=== PATIENT | female | born 1955 | race African-American/Black ===

== ENCOUNTER 2017-01-04 13:29 | Emergency (ER) | payer OTHER ==
[~2017-01-04] VITALS: Ht 167.6 cm; Wt 46.7 kg
[~2017-01-04 13:29] MED LIST: ALEN70TA45 PO; ASPI81TA2 PO; CALC-1049 PO; DARU400T2 PO; DOLU50TA PO; FOLI20CA PO; GLYC1SUP RC; ILOP8TAB2 PO; LAMO100T PO; LOPE2CAP PO; LORA1TAB PO; OMEP40CA37 PO; PRAV40TA3 PO; RITO100T PO
[2017-01-04 13:35] VITALS: BP 131/84
[2017-01-04] MEDS ORDERED: HYDROCODONE/APAP 5/325MG 1 EACH TABLET ONE (13:42)
[2017-01-04 13:55] LABS: BASOPHILS # (AUTO) 0.1 /CMM (0.0-0.2); BASOPHILS % (AUTO) 1.1 % (0.0-2.0); EOSINOPHILS # (AUTO) 0.2 /CMM (0.0-0.7); HEMATOCRIT 36 % (33-45); HEMOGLOBIN 11.8 g/dL (11.5-14.8); LYMPHOCYTES # (AUTO) 2.2 /CMM (0.8-4.8); LYMPHOCYTES % (AUTO) 37.5 % (20.0-44.0); MEAN CORPUSCULAR HEMOGLOBIN 29 PG (26.0-33.0); MEAN CORPUSCULAR HGB CONC 33 g/dl (31.0-36.0); MEAN CORPUSCULAR VOLUME 88 fL (82-100); MONOCYTES # (AUTO) 0.5 /CMM (0.1-1.30); MONOCYTES % (AUTO) 8.9 % (2.0-12.0); NEUTROPHILS # (AUTO) 2.9 /CMM (1.8-8.9); NEUTROPHILS % (AUTO) 49.5 % (43.0-81.0); PLATELET COUNT (AUTO) 254 /CMM (150-450); RDW COEFFICIENT OF VARIATION 12.9 (11.5-15.0); RED BLOOD CELL COUNT(AUTO) 4.07 MIL/uL (4.0-5.2); WHITE BLOOD COUNT (AUTO) 5.9 K/uL (4.3-11.0)
[2017-01-04 13:56] LABS: APPEARANCE,URINE Slightly Cloudy (CLEAR); BILIRUBIN,URINE Negative (NEGATIVE); BLOOD, URINE Trace-lysed Ery/uL (NEGATIVE); COLOR,URINE Yellow (YELLOW); KETONES,URINE Negative (NEGATIVE); LEUKOCYTE ESTERASE ,URINE Small (NEGATIVE); NITRITE, URINE Negative (NEGATIVE); PROTEIN,URINE Negative (NEGATIVE); UGLUCOSE Negative (NEGATIVE); UROBILINOGEN,URINE 0.2 EU/dL (0.2)
[2017-01-04] MEDS ORDERED: HYDROCODONE/APAP 5/325MG 1 EACH TABLET PO ONE (14:00)
[2017-01-04 14:31] LABS: CALCIUM, SERUM 9.3 mg/dL (8.5-10.1); CARBON DIOXIDE 32 mmol/L (21-32); CHLORIDE 105 mmol/L (98-107); CREATININE 1.4 mg/dL (0.6-1.3); GLUCOSE 86 mg/dL (74-106); POTASSIUM 3.5 mmol/L (3.5-5.1); SODIUM SERUM 142 mmol/L (136-145); UREA NITROGEN, BLOOD 21 mg/dL (7-18)
[2017-01-04 14:47] LABS: ACETAMINOPHEN < 2 ug/ml (10-30); ALANINE AMINOTRANSFERASE 32 U/L (12-78); ALBUMIN 3.9 g/dL (3.4-5.0); ALCOHOL, BLOOD < 3 mg/dL (0-0); ALKALINE PHOSPHATASE 64 U/L (46-116); ASPARTATE AMINOTRANSFERASE 37 U/L (15-37); BILIRUBIN,DIRECT 0.1 mg/dL (0.0-0.2); BILIRUBIN,TOTAL 0.4 mg/dL (0.2-1.0); SALICYLATE 0.9 mg/dL (2.8-20.0); TOTAL PROTEIN, SERUM 7.4 g/dL (6.4-8.2)
[2017-01-04 14:49] LABS: BACTERIA,URINE Few /HPF (None Seen); RBC,URINE 0-2 /HPF (0-2); SQUAMOUS EPITHELIAL CELL,UR Few /HPF (None Seen)
== END 2017-01-04 16:35 | disposition home or self-care (01) ==
LOC: ER 13:36
DX: F25.9 Schizoaffective disorder, unspecified (principal); N28.9 Disorder of kidney and ureter, unspecified; I34.1 Nonrheumatic mitral (valve) prolapse; M54.5 Low back pain; F17.200 Nicotine dependence, unspecified, uncomplicated; Z79.82 Long term (current) use of aspirin; Z88.5 Allergy status to narcotic agent; Z90.710 Acquired absence of both cervix and uterus
CPT/HCPCS: 36415; 80048; 80076; 80305; 80329; 81001; 85025; 99284; A4606; G0480 ×2; Z7610; 81000-TC

== ENCOUNTER 2017-09-13 08:37 | Emergency (ER) | payer OTHER ==
[~2017-09-13] VITALS: Ht 165.1 cm; Wt 50.8 kg
[~2017-09-13 08:37] MED LIST changes: +ASPI-1169 PO; -ASPI81TA2 PO
--- NOTE | 2017-09-13 08:44 | NUR ---
AAOX3, BIBRA FROM HOME C/O HALLUCINATION, TOOK SPEED AROUND 2AM, UPON ASSESSMENT, PATIENT WAS COMPLAINING OF CHEST DISCOMFORT. RR IS EVEN AND UNLABORED WITH NAD NOTED. PLACED ON THE MONITOR. AWAITING MD FOR EVAL.
[2017-09-13 09:28] LABS: BASOPHILS % (AUTO) 0.7 % (0.0-2.0); EOSINOPHILS % (AUTO) 3.5 % (0.0-6.0); HEMATOCRIT 40 % (33-45); HEMOGLOBIN 12.8 g/dL (11.5-14.8); LYMPHOCYTES # (AUTO) 2.2 /CMM (0.8-4.8); LYMPHOCYTES % (AUTO) 37.5 % (20.0-44.0); MEAN CORPUSCULAR HEMOGLOBIN 29 PG (26.0-33.0); MEAN CORPUSCULAR HGB CONC 32 g/dl (31.0-36.0); MEAN CORPUSCULAR VOLUME 91 fL (82-100); MONOCYTES # (AUTO) 0.6 /CMM (0.1-1.30); NEUTROPHILS # (AUTO) 2.8 /CMM (1.8-8.9); NEUTROPHILS % (AUTO) 47.3 % (43.0-81.0); PLATELET COUNT (AUTO) 245 /CMM (150-450); RDW COEFFICIENT OF VARIATION 14.5 (11.5-15.0); RED BLOOD CELL COUNT(AUTO) 4.35 MIL/uL (4.0-5.2); WHITE BLOOD COUNT (AUTO) 5.9 K/uL (4.3-11.0)
[2017-09-13] MEDS ORDERED: IV NS 0.9% 1,000 ML BAG IV ONE (09:30)
[2017-09-13 09:35] LABS: CALCIUM, SERUM 9.4 mg/dL (8.5-10.1); CARBON DIOXIDE 37 mmol/L (21-32); CHLORIDE 106 mmol/L (98-107); GLUCOSE 93 mg/dL (74-106); POTASSIUM 4.5 mmol/L (3.5-5.1); SODIUM SERUM 141 mmol/L (136-145); UREA NITROGEN, BLOOD 10 mg/dL (7-18)
[2017-09-13 09:44] LABS: TROPONIN I < 0.017 ng/mL (0.00-0.056)
[2017-09-13 09:48] LABS: INR 0.9 (0.87-1.13)
[2017-09-13] MEDS ORDERED: IOHEXOL-350 100 ML VIAL IV ONE (11:15)
[2017-09-13] MEDS ORDERED: CT SWABBABLE VALVE TRANS SET 1 EA INFUS.SET MC ONE (11:15)
[2017-09-13] MEDS ORDERED: IV NS 0.9% 250 ML IV ONE (11:15)
[2017-09-13 14:47] VITALS: BP 147/89
--- NOTE | 2017-09-13 14:47 | NUR ---
Patient discharged to home in stable condition. Written and verbal after care instructions given. Patient verbalizes understanding of instruction.IV removed. Catheter intact and site benign. Pressure and 4x4 applied to site. No bleeding noted.
== END 2017-09-13 14:48 | disposition home or self-care (01) ==
LOC: ER 08:38
DX: R07.89 Other chest pain (principal); F19.10 Other psychoactive substance abuse, uncomplicated; F15.90 Other stimulant use, unspecified, uncomplicated; E11.9 Type 2 diabetes mellitus without complications; F17.200 Nicotine dependence, unspecified, uncomplicated; Z88.5 Allergy status to narcotic agent; Z98.51 Tubal ligation status; Z98.890 Other specified postprocedural states; Z60.2 Problems related to living alone; Z79.82 Long term (current) use of aspirin; Z79.899 Other long term (current) drug therapy
CPT/HCPCS: 36415; 71045; 71275; 80048; 80305; 84484 ×2; 85025; 85378; 85730; 93005; 99285; A4606; G0480; J7030; J7050; Q9967; Z7610

== ENCOUNTER 2018-01-08 16:24 | Emergency (ER) | payer OTHER ==
[~2018-01-08] VITALS: Ht 165.1 cm; Wt 50.3 kg
--- NOTE | 2018-01-08 16:50 | NUR ---
PT BIB SELF S/P TRIP AND FALL, C/O L SHOULDER PAIN AND HIT HEAD WITHOUT KO, PT IS AOX4, NOT IN CP DISTRESS, V/S STABLE, KEPT RESTED AND COMFORTABLE. AWAITING ER MD FOR EVALUATION.
--- NOTE | 2018-01-08 18:50 | NUR ---
Patient discharged to home in stable condition. Written and verbal after care instructions given. Patient verbalizes understanding of instruction.
[2018-01-08 18:58] VITALS: BP 124/66
== END 2018-01-08 18:59 | disposition home or self-care (01) ==
LOC: ER 16:27
DX: S09.8XXA Other specified injuries of head, initial encounter (principal); F25.9 Schizoaffective disorder, unspecified; I34.1 Nonrheumatic mitral (valve) prolapse; E11.9 Type 2 diabetes mellitus without complications; F10.10 Alcohol abuse, uncomplicated; F17.200 Nicotine dependence, unspecified, uncomplicated; Y90.9 Presence of alcohol in blood, level not specified; Z90.710 Acquired absence of both cervix and uterus; Z98.51 Tubal ligation status; Z88.5 Allergy status to narcotic agent; Z60.2 Problems related to living alone; Z79.82 Long term (current) use of aspirin; W01.0XXA Fall on same level from slipping, tripping and stumbling without subsequent striking against object, initial encounter; Y93.89 Activity, other specified; Y92.89 Other specified places as the place of occurrence of the external cause; Y99.8 Other external cause status
CPT/HCPCS: 70450-TC; A4606; Z7610

== ENCOUNTER 2018-03-03 19:06 | Emergency (ER) | payer OTHER ==
[~2018-03-03] VITALS: Ht 165.1 cm; Wt 52.2 kg
[~2018-03-03 19:06] MED LIST changes: -ALEN70TA45 PO; +ALEN70TA6 PO
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
[2018-03-03] MEDS ORDERED: FAMOTIDINE/PF INJ 20 MG/2 ML VIAL IV ONE (20:00)
[2018-03-03] MEDS ORDERED: MAG HYDROX/AL HYDROX/SIMETH 30 ML UDC PO ONE (20:00)
[2018-03-03] MEDS ORDERED: FAMOTIDINE (20 MG) 20 MG TABLET ONE (20:03)
[2018-03-03] MEDS ORDERED: MAG HYDROX/AL HYDROX/SIMETH 30 ML UDC ONE (20:03)
--- NOTE | 2018-03-03 20:10 | NUR ---
PER DR CARRIZALES, CHANGED PEPCID 20MG IV TO PEPCID 20MG PO. MED GIVEN AND PT KATHE WELL
[2018-03-03 20:19] LABS: BASOPHILS # (AUTO) 0.1 /CMM (0.0-0.2); BASOPHILS % (AUTO) 1.1 % (0.0-2.0); EOSINOPHILS % (AUTO) 3.3 % (0.0-6.0); HEMATOCRIT 35 % (33-45); HEMOGLOBIN 11.6 g/dL (11.5-14.8); LYMPHOCYTES % (AUTO) 38.3 % (20.0-44.0); MEAN CORPUSCULAR HGB CONC 33 g/dl (31.0-36.0); MEAN CORPUSCULAR VOLUME 89 fL (82-100); MONOCYTES # (AUTO) 0.6 /CMM (0.1-1.30); MONOCYTES % (AUTO) 11.6 % (2.0-12.0); NEUTROPHILS # (AUTO) 2.4 /CMM (1.8-8.9); NEUTROPHILS % (AUTO) 45.7 % (43.0-81.0); PLATELET COUNT (AUTO) 235 /CMM (150-450); RED BLOOD CELL COUNT(AUTO) 3.94 MIL/uL (4.0-5.2); WHITE BLOOD COUNT (AUTO) 5.3 K/uL (4.3-11.0)
[2018-03-03 20:26] LABS: CREATININE 1.3 mg/dL (0.6-1.3); POTASSIUM 3.8 mmol/L (3.5-5.1)
[2018-03-03 20:38] LABS: ALBUMIN 3.7 g/dL (3.4-5.0); BILIRUBIN,DIRECT 0.1 mg/dL (0.0-0.2); BILIRUBIN,TOTAL 0.2 mg/dL (0.2-1.0)
--- NOTE | 2018-03-03 21:07 | NUR ---
Patient is resting comfortably in bed with eyes closed. Easily aroused. VSS
--- NOTE | 2018-03-03 21:55 | NUR ---
Patient discharged to home in stable condition. Written and verbal after care instructions given. Patient verbalizes understanding of instruction.
[2018-03-03 22:27] VITALS: BP 170/85
== END 2018-03-03 21:55 | disposition home or self-care (01) ==
LOC: ER 19:08
DX: R10.13 Epigastric pain (principal); E11.9 Type 2 diabetes mellitus without complications; F17.200 Nicotine dependence, unspecified, uncomplicated; Z60.2 Problems related to living alone; Z88.5 Allergy status to narcotic agent; Z98.51 Tubal ligation status; Z98.890 Other specified postprocedural states; Z79.82 Long term (current) use of aspirin; Z79.899 Other long term (current) drug therapy
CPT/HCPCS: 36415; 74022-TC; 80048-TC; 80076-TC; 83690-TC; 85025-TC

== ENCOUNTER 2018-03-24 15:40 | Emergency (ER) | payer OTHER ==
[~2018-03-24] VITALS: Ht 162.6 cm; Wt 54.4 kg
--- NOTE | 2018-03-24 15:40 | NUR ---
PT BIBRA 39 FROM HOME C/O LEFT LEG PAIN S/P GLF, LETHARGIC, PT IS AA0X2, NOT IN RESPIRATORY DISTRESS, V/S STABLE, KEPT RESTED AND COMFORTABLE, HOOKED TO MONITOR AND O2 AT 2LPM VIA NC.
--- NOTE | 2018-03-24 15:50 | NUR ---
SEEN AND EXAMINED BY DR. CEDEÑO.
[2018-03-24] MEDS ORDERED: IV NS 0.9% 1,000 ML BAG IV ONE (16:00)
--- NOTE | 2018-03-24 16:15 | NUR ---
LABS DRAWNED AND SENT TO LAB.
[2018-03-24 16:20] LABS: BASOPHILS % (AUTO) 0.8 % (0.0-2.0); EOSINOPHILS % (AUTO) 3.1 % (0.0-6.0); HEMATOCRIT 36 % (33-45); HEMOGLOBIN 11.9 g/dL (11.5-14.8); LYMPHOCYTES % (AUTO) 34.1 % (20.0-44.0); MEAN CORPUSCULAR HGB CONC 33 g/dl (31.0-36.0); MEAN CORPUSCULAR VOLUME 90 fL (82-100); MONOCYTES # (AUTO) 0.6 /CMM (0.1-1.30); MONOCYTES % (AUTO) 10.5 % (2.0-12.0); NEUTROPHILS % (AUTO) 51.5 % (43.0-81.0); PLATELET COUNT (AUTO) 238 /CMM (150-450); RED BLOOD CELL COUNT(AUTO) 4.03 MIL/uL (4.0-5.2); WHITE BLOOD COUNT (AUTO) 5.8 K/uL (4.3-11.0)
[2018-03-24 16:31] LABS: CALCIUM, SERUM 9.8 mg/dL (8.5-10.1); CARBON DIOXIDE 34 mmol/L (21-32); CHLORIDE 105 mmol/L (98-107); CREATININE 1.2 mg/dL (0.6-1.3); GLUCOSE 81 mg/dL (74-106); POTASSIUM 3.2 mmol/L (3.5-5.1); SODIUM SERUM 143 mmol/L (136-145); UREA NITROGEN, BLOOD 25 mg/dL (7-18)
[2018-03-24 16:37] LABS: ALANINE AMINOTRANSFERASE 28 U/L (12-78); ALBUMIN 3.9 g/dL (3.4-5.0); ALCOHOL, BLOOD < 3 mg/dL (0-0); ALKALINE PHOSPHATASE 91 U/L (46-116); ASPARTATE AMINOTRANSFERASE 24 U/L (15-37); BILIRUBIN,DIRECT 0.1 mg/dL (0.0-0.2); BILIRUBIN,TOTAL 0.2 mg/dL (0.2-1.0); TOTAL PROTEIN, SERUM 7.3 g/dL (6.4-8.2)
--- NOTE | 2018-03-24 17:00 | NUR ---
URINE SPECIMEN COLLECTED VIA STRAIGHT CATH AND SENT TO LAB.
[2018-03-24 17:17] LABS: APPEARANCE,URINE Clear (CLEAR); BILIRUBIN,URINE Negative (NEGATIVE); BLOOD, URINE Negative Ery/uL (NEGATIVE); COLOR,URINE Yellow (YELLOW); KETONES,URINE Negative (NEGATIVE); LEUKOCYTE ESTERASE ,URINE Negative (NEGATIVE); NITRITE, URINE Negative (NEGATIVE); PH,URINE 6.5 (5.0-8.0); PROTEIN,URINE Negative (NEGATIVE); UGLUCOSE Negative (NEGATIVE); UROBILINOGEN,URINE 0.2 EU/dL (0.2)
--- NOTE | 2018-03-24 18:01 | NUR ---
PT IS FOR DISCHARGE BUT STILL LETHERGIC. DR. CEDEÑO AWARE.
--- NOTE | 2018-03-24 19:23 | NUR ---
REPORT GIVEN TO FLORA DENG FOR RAJ.
--- NOTE | 2018-03-24 22:04 | NUR ---
ASSUMED CARE OF PT UPPON DISCHARGE
--- NOTE | 2018-03-24 22:05 | NUR ---
Patient discharged to home in stable condition. Written and verbal after care instructions given. Patient verbalizes understanding of instruction.IV removed. Catheter intact and site benign. Pressure and 4x4 applied to site. No bleeding noted. PT TO WAITING ROOM. WAITING FOR NURSING BEHAVIORAL SPECIALIST TO CALL BACK REGARDING TAXI VOUCHER.
[2018-03-24 22:07] VITALS: BP 117/70
== END 2018-03-24 22:08 | disposition home or self-care (01) ==
LOC: ER 15:43
DX: T43.4X1A Poisoning by butyrophenone and thiothixene neuroleptics, accidental (unintentional), initial encounter (principal); F41.9 Anxiety disorder, unspecified; R41.82 Altered mental status, unspecified; I34.1 Nonrheumatic mitral (valve) prolapse; E11.9 Type 2 diabetes mellitus without complications; F10.10 Alcohol abuse, uncomplicated; F17.200 Nicotine dependence, unspecified, uncomplicated; Y90.0 Blood alcohol level of less than 20 mg/100 ml; Z90.710 Acquired absence of both cervix and uterus; Z98.51 Tubal ligation status; Z98.890 Other specified postprocedural states; Z88.5 Allergy status to narcotic agent; Z60.2 Problems related to living alone; Z79.82 Long term (current) use of aspirin; Y92.89 Other specified places as the place of occurrence of the external cause
CPT/HCPCS: 36415; 70450-TC; 80048-TC; 80076-TC; 80305; 81000-TC; 82962-TC; 84484-TC; 85025-TC; G0480; J7030

== ENCOUNTER 2018-05-11 11:18 | Emergency (ER) | payer OTHER ==
[~2018-05-11] VITALS: Ht 165.1 cm; Wt 49.4 kg
[2018-05-11 11:26] VITALS: BP 116/66
--- NOTE | 2018-05-11 11:38 | NUR ---
Patient does not wish to proceed with medical care recommended by Dr. ARMENTA. Patient given information related to possible complications, up to and including , which could occur as a result of leaving the hospital at this time. Patient verbalizes understanding of risks involved due to leaving against medical advice. Patient has signed AMA form.
== END 2018-05-11 11:42 | disposition left against medical advice (07) ==
LOC: ER 11:18
DX: Z53.21 Procedure and treatment not carried out due to patient leaving prior to being seen by health care provider (principal); M79.605 Pain in left leg; E11.9 Type 2 diabetes mellitus without complications; Z98.890 Other specified postprocedural states

== ENCOUNTER 2019-02-07 20:19 | Emergency (ER) | payer MEDICARE, OTHER ==
[~2019-02-07] VITALS: Ht 170.2 cm; Wt 49.9 kg
[~2019-02-07 20:19] MED LIST changes: -LAMO100T PO; +LAMO100T17 PO; +OMEP40CA13 PO; -OMEP40CA37 PO
--- NOTE | 2019-02-07 20:24 | NUR ---
PER EMS, PT C/O R EAR PAIN THAT RADIATES TO CHEST, pt awake, alert, -sob, nad noted, pt on monitor, vss ,pending md ortez
[2019-02-07 20:43] LABS: BASOPHILS # (AUTO) 0.1 /CMM (0.0-0.2); BASOPHILS % (AUTO) 0.7 % (0.0-2.0); EOSINOPHILS % (AUTO) 2.3 % (0.0-6.0); HEMATOCRIT 37 % (33-45); HEMOGLOBIN 12.2 g/dL (11.5-14.8); LYMPHOCYTES % (AUTO) 37.7 % (20.0-44.0); MEAN CORPUSCULAR HGB CONC 33 g/dl (31.0-36.0); MEAN CORPUSCULAR VOLUME 89 fL (82-100); MONOCYTES # (AUTO) 0.8 /CMM (0.1-1.30); MONOCYTES % (AUTO) 9.7 % (2.0-12.0); NEUTROPHILS # (AUTO) 3.9 /CMM (1.8-8.9); NEUTROPHILS % (AUTO) 49.6 % (43.0-81.0); PLATELET COUNT (AUTO) 241 /CMM (150-450); RED BLOOD CELL COUNT(AUTO) 4.16 MIL/uL (4.0-5.2); WHITE BLOOD COUNT (AUTO) 7.9 K/uL (4.3-11.0)
[2019-02-07 20:58] LABS: CALCIUM, SERUM 9.3 mg/dL (8.5-10.1); CARBON DIOXIDE 32 mmol/L (21-32); CHLORIDE 104 mmol/L (98-107); CREATININE 1.1 mg/dL (0.6-1.3); GLUCOSE 85 mg/dL (74-106); POTASSIUM 3.9 mmol/L (3.5-5.1); SODIUM SERUM 141 mmol/L (136-145); UREA NITROGEN, BLOOD 17 mg/dL (7-18)
[2019-02-07 21:00] VITALS: BP 123/80
--- NOTE | 2019-02-07 21:52 | NUR ---
Patient discharged to home in stable condition. Written and verbal after care instructions given. Patient verbalizes understanding of instruction. IV removed. Catheter intact and site benign. Pressure and 4x4 applied to site. No bleeding noted.
== END 2019-02-07 21:52 | disposition home or self-care (01) ==
LOC: ER 20:20
DX: R07.89 Other chest pain (principal); H92.01 Otalgia, right ear; R01.1 Cardiac murmur, unspecified; E11.9 Type 2 diabetes mellitus without complications; F10.10 Alcohol abuse, uncomplicated; F17.200 Nicotine dependence, unspecified, uncomplicated; Y90.9 Presence of alcohol in blood, level not specified; Z60.2 Problems related to living alone; Z98.890 Other specified postprocedural states; Z79.82 Long term (current) use of aspirin; Z90.710 Acquired absence of both cervix and uterus; Z79.899 Other long term (current) drug therapy; Z98.51 Tubal ligation status; Z88.5 Allergy status to narcotic agent
CPT/HCPCS: 36415; 71045-TC; 80048-TC; 84484-TC; 85025-TC

== ENCOUNTER 2019-07-17 04:15 | Emergency (ER) | payer MEDICARE, OTHER ==
[~2019-07-17] VITALS: Ht 152.4 cm; Wt 51.7 kg
--- NOTE | 2019-07-17 04:26 | NUR ---
PT TO ER BED 6. PT [id number] FROM HOME C/O MIDEPIGASTRIC PAIN X2 DAYS. +NAUSEA, -VOMITING +DIARRHEA. PT ALERT AND AWAKE, RESPIRATIONS EVEN AND UNLABORED ON RA W/ NAD NOTED. PT CONNECTED TO THE RESEARCH QUALITY ASSURANCE ANALYST AND POX
[2019-07-17] MEDS ORDERED: ONDANSETRON HCL/PF 4 MG/2 ML VIAL ONE (04:34)
[2019-07-17 04:49] LABS: BASOPHILS # (AUTO) 0.1 /CMM (0.0-0.2); BASOPHILS % (AUTO) 1.1 % (0.0-2.0); EOSINOPHILS % (AUTO) 3.4 % (0.0-6.0); HEMATOCRIT 39 % (33-45); HEMOGLOBIN 12.9 g/dL (11.5-14.8); LYMPHOCYTES # (AUTO) 2.6 /CMM (0.8-4.8); LYMPHOCYTES % (AUTO) 40.1 % (20.0-44.0); MEAN CORPUSCULAR HGB CONC 33 g/dl (31.0-36.0); MEAN CORPUSCULAR VOLUME 91 fL (82-100); MONOCYTES # (AUTO) 0.6 /CMM (0.1-1.30); MONOCYTES % (AUTO) 9.6 % (2.0-12.0); NEUTROPHILS % (AUTO) 45.8 % (43.0-81.0); PLATELET COUNT (AUTO) 247 /CMM (150-450); WHITE BLOOD COUNT (AUTO) 6.5 K/uL (4.3-11.0)
[2019-07-17 04:55] LABS: CARBON DIOXIDE 32 mmol/L (21-32); CHLORIDE 106 mmol/L (98-107); CREATININE 1.1 mg/dL (0.6-1.3); GLUCOSE 94 mg/dL (74-106); POTASSIUM 4.8 mmol/L (3.5-5.1); SODIUM SERUM 140 mmol/L (136-145); UREA NITROGEN, BLOOD 15 mg/dL (7-18)
[2019-07-17] MEDS ORDERED: IV NS 0.9% 1,000 ML BAG IV ONE (05:00)
[2019-07-17] MEDS ORDERED: ONDANSETRON HCL/PF 4 MG/2 ML VIAL IVP ONE (05:00)
[2019-07-17 05:01] LABS: ALANINE AMINOTRANSFERASE 36 U/L (12-78); ALKALINE PHOSPHATASE 71 U/L (46-116); ASPARTATE AMINOTRANSFERASE 37 U/L (15-37); BILIRUBIN,TOTAL 0.3 mg/dL (0.2-1.0); LIPASE 70 U/L (73-393); TOTAL PROTEIN, SERUM 7.4 g/dL (6.4-8.2)
--- NOTE | 2019-07-17 05:40 | NUR ---
CALLED HUSSEIN FOR REPORT
--- NOTE | 2019-07-17 08:12 | NUR ---
Patient discharged to home in stable condition. Written and verbal after care instructions given. Patient verbalizes understanding of instruction.
--- NOTE | 2019-07-17 08:12 | NUR ---
Note undone in EDM - 07/17/19 at 0812 by SKY IV removed. Catheter intact and site benign. Pressure and 4x4 applied to site. No bleeding noted.
--- NOTE | 2019-07-17 08:12 | NUR ---
Robina villalobos in ED - 07/17/19 at 0812 by SKY Patient discharged to home in stable condition. Written and verbal after care instructions given. Patient verbalizes understanding of instruction.
--- NOTE | 2019-07-17 08:12 | NUR ---
Patient discharged to home in stable condition. Written and verbal after care instructions given. Patient verbalizes understanding of instruction.
[2019-07-17 08:13] VITALS: BP 138/66
== END 2019-07-17 08:14 | disposition home or self-care (01) ==
LOC: ER 04:20
DX: R11.0 Nausea (principal); R19.7 Diarrhea, unspecified; F17.210 Nicotine dependence, cigarettes, uncomplicated; R10.12 Left upper quadrant pain; E11.9 Type 2 diabetes mellitus without complications; Z98.890 Other specified postprocedural states; Z88.5 Allergy status to narcotic agent; Z60.2 Problems related to living alone; Z79.899 Other long term (current) drug therapy; Z79.82 Long term (current) use of aspirin
CPT/HCPCS: 36415; 71045; 74177; 80048; 80076; 83690; 84484; 85025; 93005; 96361; 96374; 99285; 99406; J2405; J7030

== ENCOUNTER 2019-07-17 16:29 | Emergency (ER) | payer OTHER ==
[~2019-07-17] VITALS: Ht 165.1 cm; Wt 45.4 kg
[2019-07-17] MEDS ORDERED: oxyCODONE/APAP (5/325 MG) 1 UDTAB TABLET ONE (17:08)
[2019-07-17] MEDS ORDERED: IBUPROFEN 600 MG TABLET PO ONE ×2 (17:08→17:30)
--- NOTE | 2019-07-17 17:12 | NUR ---
BIBS TO ER BED 7. AAOX 4. NOT IN RESP DISTRESS. AMBUALTORY. CAME IN FOR R HIP AND R LOWER BACK PAIN SINCE YESTERDAY. RATES PAIN 11/18. AGREAVATED BY MOVING. MD AT BEDSIDE FOR EVAL. ORDERS RECEIVED NOTED AND CARRIED OUT.
[2019-07-17] MEDS ORDERED: oxyCODONE/APAP (5/325 MG) 1 UDTAB TABLET PO ONE (17:30)
[2019-07-17 18:12] VITALS: BP 125/68
--- NOTE | 2019-07-17 18:12 | NUR ---
Patient discharged to home in stable condition. Written and verbal after care instructions given. Patient verbalizes understanding of instruction. Pt ambulatory with a steady gait
== END 2019-07-17 18:12 | disposition home or self-care (01) ==
LOC: ER 16:36
DX: M54.5 Low back pain (principal); M25.551 Pain in right hip; G89.29 Other chronic pain; E11.9 Type 2 diabetes mellitus without complications; Z90.710 Acquired absence of both cervix and uterus; Z98.890 Other specified postprocedural states; Z98.51 Tubal ligation status; Z88.5 Allergy status to narcotic agent; Z60.2 Problems related to living alone; Z79.899 Other long term (current) drug therapy; Z79.82 Long term (current) use of aspirin
CPT/HCPCS: 73502

== ENCOUNTER 2019-09-17 07:28 | Emergency (ER) | payer OTHER ==
[~2019-09-17] VITALS: Ht 167.6 cm; Wt 61.2 kg
--- NOTE | 2019-09-17 07:55 | NUR ---
PT IS AAOX3, DR MORGAN EVALUATED THE PATIENT. DENIES THAT SHE IS SUICIDAL. C/O BEING DEOPRESSED AND SLEEP DEPRIVED. STATES THAT SHE DOES NOT WISH TO STAY IN HOSPITAL AND WOULD JUST LIKE TO GO HOME AND REST. DISCHARGE IN STABLE CONDITION.
--- NOTE | 2019-09-17 07:56 | NUR ---
PT IS VERBALLY DISCHARGE BY LUCI MORGAN.
[2019-09-17 08:13] VITALS: BP 129/69
== END 2019-09-17 07:56 | disposition home or self-care (01) ==
LOC: ER 07:31
DX: F32.9 Major depressive disorder, single episode, unspecified (principal); E11.9 Type 2 diabetes mellitus without complications; F17.200 Nicotine dependence, unspecified, uncomplicated; Z98.890 Other specified postprocedural states; Z88.5 Allergy status to narcotic agent; Z60.2 Problems related to living alone; Z79.82 Long term (current) use of aspirin; Z79.899 Other long term (current) drug therapy

== ENCOUNTER 2019-11-05 15:48 | Emergency (ER) | payer OTHER ==
[~2019-11-05] VITALS: Ht 165.1 cm; Wt 51.7 kg
--- NOTE | 2019-11-05 15:54 | NUR ---
Abdominal pain with diarrhea x 4 days, to ER bed 11, changed to hosp gown, hooked to BP cuff and monitor, provided w warm blanket, patient aao x 4, breathing even and unlabored, no distress noted. awaiting MD ortez
--- NOTE | 2019-11-05 15:55 | NUR ---
DR GAGNON AT BEDSIDE
[2019-11-05 16:22] LABS: BASOPHILS % (AUTO) 0.6 % (0.0-2.0); EOSINOPHILS % (AUTO) 3.3 % (0.0-6.0); HEMATOCRIT 36 % (33-45); HEMOGLOBIN 11.7 g/dL (11.5-14.8); LYMPHOCYTES # (AUTO) 1.9 /CMM (0.8-4.8); LYMPHOCYTES % (AUTO) 29.3 % (20.0-44.0); MEAN CORPUSCULAR HGB CONC 33 g/dl (31.0-36.0); MEAN CORPUSCULAR VOLUME 92 fL (82-100); MONOCYTES # (AUTO) 0.7 /CMM (0.1-1.30); MONOCYTES % (AUTO) 10.2 % (2.0-12.0); NEUTROPHILS # (AUTO) 3.8 /CMM (1.8-8.9); NEUTROPHILS % (AUTO) 56.6 % (43.0-81.0); PLATELET COUNT (AUTO) 216 /CMM (150-450); RED BLOOD CELL COUNT(AUTO) 3.91 MIL/uL (4.0-5.2); WHITE BLOOD COUNT (AUTO) 6.6 K/uL (4.3-11.0)
[2019-11-05 16:32] LABS: APPEARANCE,URINE Clear (CLEAR); BILIRUBIN,URINE Negative (NEGATIVE); BLOOD, URINE Trace-intact Ery/uL (NEGATIVE); COLOR,URINE Yellow (YELLOW); KETONES,URINE Negative (NEGATIVE); LEUKOCYTE ESTERASE ,URINE Negative (NEGATIVE); NITRITE, URINE Negative (NEGATIVE); PROTEIN,URINE Negative (NEGATIVE); UGLUCOSE Negative (NEGATIVE); UROBILINOGEN,URINE 0.2 EU/dL (0.2)
[2019-11-05 16:43] LABS: CALCIUM, SERUM 9.1 mg/dL (8.5-10.1); CREATININE 1.2 mg/dL (0.6-1.3); POTASSIUM 4.3 mmol/L (3.5-5.1)
[2019-11-05 16:48] LABS: BACTERIA,URINE None seen /HPF (None Seen); SQUAMOUS EPITHELIAL CELL,UR Few /HPF (None Seen); WBC,URINE 0-2 /HPF (0-3)
[2019-11-05 16:49] LABS: ALBUMIN 3.7 g/dL (3.4-5.0); BILIRUBIN,DIRECT 0.1 mg/dL (0.0-0.2); BILIRUBIN,TOTAL 0.3 mg/dL (0.2-1.0); TOTAL PROTEIN, SERUM 7.3 g/dL (6.4-8.2)
[2019-11-05 18:21] VITALS: BP 141/83
== END 2019-11-05 18:23 | disposition home or self-care (01) ==
LOC: ER 15:51
DX: R10.84 Generalized abdominal pain (principal); R19.7 Diarrhea, unspecified; I10 Essential (primary) hypertension; E11.9 Type 2 diabetes mellitus without complications; F17.200 Nicotine dependence, unspecified, uncomplicated; E78.5 Hyperlipidemia, unspecified; Z60.2 Problems related to living alone; Z79.82 Long term (current) use of aspirin; Z79.899 Other long term (current) drug therapy; Z98.890 Other specified postprocedural states; Z88.5 Allergy status to narcotic agent
CPT/HCPCS: 36415; 80048-TC; 80076-TC; 81000-TC; 83690-TC; 85025-TC

== ENCOUNTER 2019-12-10 22:24 | Emergency (ER) | payer OTHER ==
[~2019-12-10] VITALS: Ht 165.1 cm; Wt 51.7 kg
[2019-12-10 22:45] VITALS: BP 154/87
[2019-12-10] MEDS ORDERED: DIAZEPAM 5 MG TABLET ONE (22:57)
[2019-12-10] MEDS ORDERED: KETOROLAC TROMETHAMINE INJ 30 MG/ML VIAL ONE (22:57)
[2019-12-10] MEDS ORDERED: KETOROLAC TROMETHAMINE INJ 30 MG/ML VIAL IM ONE (23:00)
[2019-12-10] MEDS ORDERED: DIAZEPAM 5 MG TABLET PO ONE ×2 (23:00→23:30)
[2019-12-10] MEDS ORDERED: KETOROLAC TROMETHAMINE INJ 60 MG/2 ML VIAL IM ONE (23:30)
== END 2019-12-10 23:48 | disposition home or self-care (01) ==
LOC: ER 22:31
DX: M54.5 Low back pain (principal); E11.9 Type 2 diabetes mellitus without complications; Z90.710 Acquired absence of both cervix and uterus; Z98.890 Other specified postprocedural states; Z88.5 Allergy status to narcotic agent; Z98.51 Tubal ligation status; Z60.2 Problems related to living alone; Z79.82 Long term (current) use of aspirin; Z79.899 Other long term (current) drug therapy
CPT/HCPCS: 96372; 99283; J1885

== ENCOUNTER 2019-12-13 01:37 | Emergency (ER) | payer OTHER ==
[~2019-12-13] VITALS: Ht 165.1 cm; Wt 51.7 kg
[2019-12-13] MEDS ORDERED: KETOROLAC TROMETHAMINE INJ 60 MG/2 ML VIAL IM ONE (02:00)
--- NOTE | 2019-12-13 02:15 | NUR ---
Patient discharged to home in stable condition. Written and verbal after care instructions given. Patient verbalizes understanding of instruction.
[2019-12-13] MEDS ORDERED: KETOROLAC TROMETHAMINE INJ 30 MG/ML VIAL ONE (02:27)
[2019-12-13 04:44] VITALS: BP 132/56
== END 2019-12-13 04:46 | disposition home or self-care (01) ==
LOC: ER 01:40
DX: S60.211A Contusion of right wrist, initial encounter (principal); S40.011A Contusion of right shoulder, initial encounter; S70.02XA Contusion of left hip, initial encounter; S50.01XA Contusion of right elbow, initial encounter; E11.9 Type 2 diabetes mellitus without complications; Z90.710 Acquired absence of both cervix and uterus; Z98.51 Tubal ligation status; Z88.5 Allergy status to narcotic agent; Z98.890 Other specified postprocedural states; Z60.2 Problems related to living alone; Z79.82 Long term (current) use of aspirin; Z79.899 Other long term (current) drug therapy; W06.XXXA Fall from bed, initial encounter; Y93.89 Activity, other specified; Y92.89 Other specified places as the place of occurrence of the external cause; Y99.8 Other external cause status
CPT/HCPCS: 73030; 73080; 73110; 73503; 96372; 99284; J1885; 73502

== ENCOUNTER 2020-05-14 13:15 | Emergency (ER) | payer OTHER ==
[~2020-05-14] VITALS: Ht 165.1 cm; Wt 51.7 kg
[~2020-05-14 13:15] MED LIST changes: -ALEN70TA6 PO; +ALEN70TA80 PO
--- NOTE | 2020-05-14 14:04 | NUR ---
dr conrad at bedside for eval.
--- NOTE | 2020-05-14 14:10 | NUR ---
laborer stores at bedside for blood draw.
[2020-05-14 14:18] LABS: BASOPHILS # (AUTO) 0.2 /CMM (0.0-0.2); BASOPHILS % (AUTO) 3.4 % (0.0-2.0); EOSINOPHILS % (AUTO) 2.4 % (0.0-6.0); HEMATOCRIT 37 % (33-45); HEMOGLOBIN 11.9 g/dL (11.5-14.8); LYMPHOCYTES # (AUTO) 1.8 /CMM (0.8-4.8); LYMPHOCYTES % (AUTO) 28.7 % (20.0-44.0); MEAN CORPUSCULAR HGB CONC 33 g/dl (31.0-36.0); MEAN CORPUSCULAR VOLUME 92 fL (82-100); MONOCYTES # (AUTO) 0.6 /CMM (0.1-1.30); MONOCYTES % (AUTO) 9.3 % (2.0-12.0); NEUTROPHILS # (AUTO) 3.5 /CMM (1.8-8.9); NEUTROPHILS % (AUTO) 56.2 % (43.0-81.0); PLATELET COUNT (AUTO) 243 /CMM (150-450); RED BLOOD CELL COUNT(AUTO) 3.96 MIL/uL (4.0-5.2); WHITE BLOOD COUNT (AUTO) 6.2 K/uL (4.3-11.0)
[2020-05-14 14:23] LABS: BILIRUBIN,URINE Negative (NEGATIVE); COLOR,URINE YELLOW (YELLOW); LEUKOCYTE ESTERASE ,URINE Negative (NEGATIVE); NITRITE, URINE Negative (NEGATIVE); PH,URINE 6.5 (5.0-8.0); PROTEIN,URINE Negative (NEGATIVE); UGLUCOSE Negative (NEGATIVE); UROBILINOGEN,URINE 0.2 EU/dL (0.2)
[2020-05-14] MEDS ORDERED: OLANZAPINE 5 MG TABLET ONE (14:28)
[2020-05-14] MEDS ORDERED: OLANZAPINE 5 MG TABLET PO ONE (14:30)
[2020-05-14 14:32] LABS: ALANINE AMINOTRANSFERASE 24 U/L (12-78); ALBUMIN 3.9 g/dL (3.4-5.0); ALKALINE PHOSPHATASE 79 U/L (46-116); ASPARTATE AMINOTRANSFERASE 28 U/L (15-37); BILIRUBIN,DIRECT 0.1 mg/dL (0.0-0.2); BILIRUBIN,TOTAL 0.2 mg/dL (0.2-1.0); CALCIUM, SERUM 9.1 mg/dL (8.5-10.1); CARBON DIOXIDE 29 mmol/L (21-32); CHLORIDE 105 mmol/L (98-107); CREATININE 1.1 mg/dL (0.6-1.3); GLUCOSE 116 mg/dL (74-106); SODIUM SERUM 142 mmol/L (136-145); TOTAL PROTEIN, SERUM 7.6 g/dL (6.4-8.2); UREA NITROGEN, BLOOD 21 mg/dL (7-18)
[2020-05-14 14:34] LABS: ACETAMINOPHEN < 10 ug/ml (10-30); ALCOHOL, BLOOD < 3 mg/dL (0-0)
--- NOTE | 2020-05-14 15:26 | NUR ---
LAB CALLED PT COVID RESULT NEGATIVE.
--- NOTE | 2020-05-14 15:40 | NUR ---
clinicals and facesheet faxed over to [facility] intake
--- NOTE | 2020-05-14 20:50 | NUR ---
PORTFOLIO SPECIALIST ARIANNA MACIAS AT BEDSIDE FOR EVAL
--- NOTE | 2020-05-14 21:31 | NUR ---
TRANSFER INFORMATION: PT ACCEPTED TO [facility] ACCEPTING MD: DR. LAWS NUMBER FOR REPORT: [phone] UNIT 1
--- NOTE | 2020-05-14 22:24 | NUR ---
20-30MINUTES GO GREEN
--- NOTE | 2020-05-14 22:36 | NUR ---
REPORT GIVEN TO [facility]ARTINEZ AT [facility]
[2020-05-14 22:40] VITALS: BP 130/81
[2020-05-14] MEDS ORDERED: MAG HYDROX/AL HYDROX/SIMETH 30 ML UDC ONE (22:43)
--- NOTE | 2020-05-14 22:55 | NUR ---
REPORT GIVEN TO [facility] FOR TRANSPORTATION RAJ
[2020-05-14] MEDS ORDERED: MAG HYDROX/AL HYDROX/SIMETH 30 ML UDC PO ONE (23:00)
== END 2020-05-14 23:07 ==
LOC: ER 13:36
DX: F25.9 Schizoaffective disorder, unspecified (principal); Z20.822 Contact with and (suspected) exposure to COVID-19; Z79.82 Long term (current) use of aspirin; Z79.899 Other long term (current) drug therapy
CPT/HCPCS: 36415; 80048; 80076; 80299; 80307; 80320; 81003; 85025; 87426; 93005; 99285; C9803; G0480

== ENCOUNTER 2020-08-14 16:12 | Emergency (ER) | payer OTHER ==
[~2020-08-14] VITALS: Ht 165.1 cm; Wt 51.7 kg
[~2020-08-14 16:12] MED LIST changes: -OMEP40CA13 PO; +OMEP40CA21 PO
[2020-08-14 16:56] VITALS: BP 140/79
[2020-08-14] MEDS ORDERED: IBUP-1957 PO (17:17)
[2020-08-14] MEDS ORDERED: GABA-536 PO (17:17)
[2020-08-14] MEDS ORDERED: KETOROLAC TROMETHAMINE INJ 30 MG/ML VIAL ONE (17:20)
--- NOTE | 2020-08-14 17:29 | NUR ---
Patient discharged to home in stable condition. Written and verbal after care instructions given. Patient verbalizes understanding of instruction.
[2020-08-14] MEDS ORDERED: KETOROLAC TROMETHAMINE INJ 60 MG/2 ML VIAL IM ONE (17:30)
[2020-08-15] MEDS ORDERED: DICL1PAT13 TP (20:31)
== END 2020-08-14 17:29 | disposition home or self-care (01) ==
LOC: ER 16:12
DX: E11.40 Type 2 diabetes mellitus with diabetic neuropathy, unspecified (principal); F17.200 Nicotine dependence, unspecified, uncomplicated; Z98.890 Other specified postprocedural states; Z88.5 Allergy status to narcotic agent; Z60.2 Problems related to living alone; Z79.899 Other long term (current) drug therapy; Z79.84 Long term (current) use of oral hypoglycemic drugs
CPT/HCPCS: 96372; 99283; J1885

== ENCOUNTER 2020-08-15 18:22 | Emergency (ER) | payer OTHER ==
[~2020-08-15] VITALS: Ht 165.1 cm; Wt 51.7 kg
[~2020-08-15 18:22] MED LIST changes: +GABA-536 PO; +IBUP-1957 PO
[2020-08-15 18:42] VITALS: BP 136/75
[2020-08-15 20:04] LABS: BILIRUBIN,URINE Negative (NEGATIVE); COLOR,URINE YELLOW (YELLOW); LEUKOCYTE ESTERASE ,URINE Trace (NEGATIVE); NITRITE, URINE Negative (NEGATIVE); PH,URINE 5.5 (5.0-8.0); PROTEIN,URINE Negative (NEGATIVE); UGLUCOSE Negative (NEGATIVE); UROBILINOGEN,URINE 0.2 EU/dL (0.2)
[2020-08-15 20:15] LABS: BACTERIA,URINE None seen /HPF (None Seen); SQUAMOUS EPITHELIAL CELL,UR Moderate /HPF (None Seen)
[2020-08-15] MEDS ORDERED: DICL1PAT13 TP (20:31)
--- NOTE | 2020-08-15 20:35 | NUR ---
Patient discharged to home in stable condition. Written and verbal after care instructions given. Patient verbalizes understanding of instruction. pt ambulatory with a steady gait
== END 2020-08-15 20:35 | disposition home or self-care (01) ==
LOC: ER 18:33
DX: E11.40 Type 2 diabetes mellitus with diabetic neuropathy, unspecified (principal); M54.6 Pain in thoracic spine; F17.200 Nicotine dependence, unspecified, uncomplicated; Z98.890 Other specified postprocedural states; Z88.5 Allergy status to narcotic agent; Z60.2 Problems related to living alone; Z79.899 Other long term (current) drug therapy; Z79.82 Long term (current) use of aspirin
CPT/HCPCS: 81001; 87086-TC

== ENCOUNTER 2020-08-26 13:30 | Emergency (ER) | payer OTHER ==
[~2020-08-26] VITALS: Ht 167.6 cm; Wt 56.7 kg
[~2020-08-26 13:30] MED LIST changes: +DICL1PAT13 TP
[2020-08-26 13:40] VITALS: BP 109/69
--- NOTE | 2020-08-26 14:48 | NUR ---
SEEN AND EXAMINED BY .
[2020-08-26] MEDS ORDERED: HYDROCODONE/APAP 5/325MG TABLET PO ONE (15:00)
[2020-08-26] MEDS ORDERED: HYDROCODONE/APAP 5/325MG TABLET ONE (15:03)
[2020-08-26] MEDS ORDERED: ONDANSETRON 4 MG TAB.RAPDIS ONE (15:03)
[2020-08-26] MEDS ORDERED: ONDANSETRON 4 MG TAB.RAPDIS SL ONE (15:30)
--- NOTE | 2020-08-26 16:08 | NUR ---
KHURRAM WRAP APPLIED ON THE R KNEE.
--- NOTE | 2020-08-26 16:14 | NUR ---
Patient discharged to home in stable condition. Written and verbal after care instructions given. Patient verbalizes understanding of instruction.
== END 2020-08-26 16:14 | disposition home or self-care (01) ==
LOC: ER 13:43
DX: M17.11 Unilateral primary osteoarthritis, right knee (principal); E11.9 Type 2 diabetes mellitus without complications; F17.200 Nicotine dependence, unspecified, uncomplicated; Z98.890 Other specified postprocedural states; Z88.5 Allergy status to narcotic agent; Z60.2 Problems related to living alone; Z79.899 Other long term (current) drug therapy; Z79.82 Long term (current) use of aspirin
CPT/HCPCS: 73564; 99283; Q0162

== ENCOUNTER 2020-08-30 03:30 | Emergency (ER) | payer OTHER ==
[~2020-08-30] VITALS: Ht 165.1 cm; Wt 54.9 kg
[2020-08-30 03:32] VITALS: BP 96/64
--- NOTE | 2020-08-30 03:42 | NUR ---
SEEN AND EVALUATED BY DR ARTEAGA
[2020-08-30] MEDS ORDERED: diphenhydrAMINE HCL 25 MG CAPSULE ONE (03:43)
[2020-08-30] MEDS ORDERED: diphenhydrAMINE HCL 25 MG CAPSULE PO ONE (04:00)
== END 2020-08-30 03:44 | disposition home or self-care (01) ==
LOC: ER 03:33
DX: L29.9 Pruritus, unspecified (principal); I10 Essential (primary) hypertension; E11.9 Type 2 diabetes mellitus without complications; F17.200 Nicotine dependence, unspecified, uncomplicated; Z98.890 Other specified postprocedural states; Z88.5 Allergy status to narcotic agent; Z60.2 Problems related to living alone; Z79.899 Other long term (current) drug therapy; Z79.82 Long term (current) use of aspirin
CPT/HCPCS: 99283; Q0163

== ENCOUNTER 2020-10-08 03:00 | Emergency (ER) | payer OTHER ==
[~2020-10-08] VITALS: Ht 167.6 cm; Wt 51.7 kg
[~2020-10-08 03:00] MED LIST changes: +DICL1PAT11 TP; -DICL1PAT13 TP
--- NOTE | 2020-10-08 03:15 | NUR ---
OSEI FROM HOME FOR C/O ABD PAIN X 3 HOURS. +NAUSEA. DENIED VOMITING, DIARRHEA, DYSURIA, HEMATURIA, FEVER OR CHILLS. PT AMBULATORY TO BED 2, W/ STEADY GAITS. URINE SAMPLE OBTAINED . PT WAS PLACED IN BED 2 ER, VSS. WILL CONT TO MONITOR
--- NOTE | 2020-10-08 03:27 | NUR ---
pt iv site #20 on right ac
[2020-10-08 03:29] LABS: BASOPHILS # (AUTO) 0.1 K/uL (0.0-0.2); BASOPHILS % (AUTO) 0.8 % (0.0-2.0); EOSINOPHILS % (AUTO) 1.8 % (0.0-6.0); HEMATOCRIT 38 % (33-45); HEMOGLOBIN 12.7 g/dL (11.5-14.8); LYMPHOCYTES # (AUTO) 2.6 K/uL (0.8-4.8); LYMPHOCYTES % (AUTO) 35.5 % (20.0-44.0); MEAN CORPUSCULAR HGB CONC 34 g/dl (31.0-36.0); MEAN CORPUSCULAR VOLUME 93 fL (82-100); MONOCYTES # (AUTO) 0.6 K/uL (0.1-1.30); MONOCYTES % (AUTO) 8.3 % (2.0-12.0); NEUTROPHILS # (AUTO) 3.9 K/uL (1.8-8.9); NEUTROPHILS % (AUTO) 53.6 % (43.0-81.0); PLATELET COUNT (AUTO) 269 K/uL (150-450); RED BLOOD CELL COUNT(AUTO) 4.03 MIL/uL (4.0-5.2); WHITE BLOOD COUNT (AUTO) 7.2 K/uL (4.3-11.0)
[2020-10-08 03:34] LABS: CALCIUM, SERUM 9.3 mg/dL (8.5-10.1); POTASSIUM 4.1 mmol/L (3.5-5.1)
[2020-10-08 03:40] LABS: ALBUMIN 4.4 g/dL (3.4-5.0); BILIRUBIN,DIRECT 0.1 mg/dL (0.0-0.2); BILIRUBIN,TOTAL 0.4 mg/dL (0.2-1.0); TOTAL PROTEIN, SERUM 8.2 g/dL (6.4-8.2)
[2020-10-08] MEDS ORDERED: FAMOTIDINE/PF INJ 20 MG/2 ML VIAL IV ONE ×2 (05:00→05:04)
[2020-10-08] MEDS ORDERED: FAMO20TA8 PO (05:28)
[2020-10-08] MEDS ORDERED: ONDANSETRON HCL/PF 4 MG/2 ML VIAL ONE (05:40)
--- NOTE | 2020-10-08 05:57 | NUR ---
Patient discharged to home in stable condition. Written and verbal after care instructions given. Patient verbalizes understanding of instruction. all due meds given as ordered. IV removed. Catheter intact and site benign. Pressure and 4x4 applied to site. No bleeding noted. vss
[2020-10-08] MEDS ORDERED: ONDANSETRON HCL/PF - ER 4 MG/2 ML VIAL IV ONE (06:00)
[2020-10-08 06:05] VITALS: BP 109/71
[2020-10-08] MEDS ORDERED: NITR100C6 PO (15:36)
== END 2020-10-08 06:07 | disposition home or self-care (01) ==
LOC: ER 03:02
DX: R10.84 Generalized abdominal pain (principal); R11.0 Nausea; I10 Essential (primary) hypertension; E11.9 Type 2 diabetes mellitus without complications; F17.200 Nicotine dependence, unspecified, uncomplicated; Z98.890 Other specified postprocedural states; Z88.5 Allergy status to narcotic agent; Z60.2 Problems related to living alone; Z79.899 Other long term (current) drug therapy; Z79.82 Long term (current) use of aspirin
CPT/HCPCS: 36415; 74176; 80048; 80076; 85025; 96374; 96375; 99284; J2405 ×2; J3490

== ENCOUNTER 2020-10-08 14:18 | Emergency (ER) | payer OTHER ==
[~2020-10-08] VITALS: Ht 165.1 cm; Wt 52.2 kg
[~2020-10-08 14:18] MED LIST changes: +FAMO20TA8 PO
--- NOTE | 2020-10-08 14:21 | NUR ---
TO ER BED 3, C/O ABDOMINAL PAIN FOR 1WEEK, A&OX4
--- NOTE | 2020-10-08 14:35 | NUR ---
URINE COLLECTED AND SENT TO LAB
[2020-10-08] MEDS ORDERED: KETOROLAC TROMETHAMINE INJ 30 MG/ML VIAL ONE (14:46)
[2020-10-08] MEDS ORDERED: KETOROLAC TROMETHAMINE INJ 30 MG/ML VIAL IM ONE (15:00)
[2020-10-08 15:05] LABS: BILIRUBIN,URINE Negative (NEGATIVE); COLOR,URINE YELLOW (YELLOW); LEUKOCYTE ESTERASE ,URINE Small (NEGATIVE); NITRITE, URINE Negative (NEGATIVE); PH,URINE 7.5 (5.0-8.0); PROTEIN,URINE Negative (NEGATIVE); UGLUCOSE Negative (NEGATIVE); UROBILINOGEN,URINE 0.2 EU/dL (0.2)
[2020-10-08 15:12] LABS: BACTERIA,URINE Few /HPF (None Seen); SQUAMOUS EPITHELIAL CELL,UR Few /HPF (None Seen)
[2020-10-08] MEDS ORDERED: NITR100C6 PO (15:36)
[2020-10-08 16:26] VITALS: BP 126/82
== END 2020-10-08 16:31 | disposition home or self-care (01) ==
LOC: ER 14:20
DX: N39.0 Urinary tract infection, site not specified (principal); I10 Essential (primary) hypertension; E11.9 Type 2 diabetes mellitus without complications; F17.200 Nicotine dependence, unspecified, uncomplicated; Z98.890 Other specified postprocedural states; Z88.5 Allergy status to narcotic agent; Z60.2 Problems related to living alone; Z79.899 Other long term (current) drug therapy; Z79.82 Long term (current) use of aspirin
CPT/HCPCS: 81001; 87086; 96372; 99283; J1885

== ENCOUNTER 2020-10-09 10:17 | Emergency (ER) | payer OTHER ==
[~2020-10-09] VITALS: Ht 175.3 cm; Wt 72.6 kg
[~2020-10-09 10:17] MED LIST changes: +NITR100C6 PO
--- NOTE | 2020-10-09 10:25 | NUR ---
BIBRA C/O LOWER ABD PAIN. DENIES CP, SOB, DIZZINESS, N/V/D AT THIS TIME. RR EVEN & UNLABORED. WILL CONT TO MONITOR.
--- NOTE | 2020-10-09 10:30 | NUR ---
DR. THOMPSON AT BS FOR EVAL.
[2020-10-09] MEDS ORDERED: KETOROLAC TROMETHAMINE 15 MG/ML VIAL ONE (10:38)
[2020-10-09] MEDS ORDERED: ONDANSETRON HCL/PF 4 MG/2 ML VIAL ONE (10:38)
[2020-10-09] MEDS ORDERED: IV NS 0.9% 250 ML IV ONE (11:00)
[2020-10-09] MEDS ORDERED: IOHEXOL-300 100 ML VIAL IV ONE (11:00)
[2020-10-09] MEDS ORDERED: IV NS 0.9% 1,000 ML BAG IV ONE (11:00)
[2020-10-09] MEDS ORDERED: ONDANSETRON HCL/PF 4 MG/2 ML VIAL IVP ONE (11:00)
[2020-10-09] MEDS ORDERED: KETOROLAC TROMETHAMINE INJ 30 MG/ML VIAL IV ONE (11:00)
--- NOTE | 2020-10-09 11:00 | NUR ---
PT TO CT VIA [facility]
[2020-10-09 11:19] LABS: CALCIUM, SERUM 10.2 mg/dL (8.5-10.1); CARBON DIOXIDE 32 mmol/L (21-32); CHLORIDE 104 mmol/L (98-107); GLUCOSE 121 mg/dL (74-106); POTASSIUM 3.8 mmol/L (3.5-5.1); SODIUM SERUM 142 mmol/L (136-145); UREA NITROGEN, BLOOD 14 mg/dL (7-18)
[2020-10-09 11:21] LABS: BASOPHILS % (AUTO) 0.4 % (0.0-2.0); EOSINOPHILS % (AUTO) 0.2 % (0.0-6.0); HEMATOCRIT 41 % (33-45); HEMOGLOBIN 13.6 g/dL (11.5-14.8); LYMPHOCYTES # (AUTO) 1.5 K/uL (0.8-4.8); LYMPHOCYTES % (AUTO) 16.4 % (20.0-44.0); MEAN CORPUSCULAR HGB CONC 34 g/dl (31.0-36.0); MEAN CORPUSCULAR VOLUME 94 fL (82-100); MONOCYTES # (AUTO) 0.6 K/uL (0.1-1.30); MONOCYTES % (AUTO) 6.6 % (2.0-12.0); NEUTROPHILS # (AUTO) 6.8 K/uL (1.8-8.9); NEUTROPHILS % (AUTO) 76.4 % (43.0-81.0); PLATELET COUNT (AUTO) 270 K/uL (150-450); RED BLOOD CELL COUNT(AUTO) 4.33 MIL/uL (4.0-5.2); WHITE BLOOD COUNT (AUTO) 8.9 K/uL (4.3-11.0)
[2020-10-09 11:24] LABS: ALANINE AMINOTRANSFERASE 33 U/L (12-78); ALBUMIN 4.7 g/dL (3.4-5.0); ALKALINE PHOSPHATASE 60 U/L (46-116); ASPARTATE AMINOTRANSFERASE 28 U/L (15-37); BILIRUBIN,DIRECT 0.1 mg/dL (0.0-0.2); BILIRUBIN,TOTAL 0.5 mg/dL (0.2-1.0); LIPASE 94 U/L (73-393); TOTAL PROTEIN, SERUM 8.8 g/dL (6.4-8.2)
--- NOTE | 2020-10-09 11:29 | NUR ---
PT BACK FROM CT. MEDICATED ORDERED, PT KATHE WELL. WILL CONT TO MONITOR.
[2020-10-09 12:27] LABS: BILIRUBIN,URINE NEGATIVE (NEGATIVE); LEUKOCYTE ESTERASE ,URINE NEGATIVE (NEGATIVE); NITRITE, URINE NEGATIVE (NEGATIVE); PROTEIN,URINE NEGATIVE (NEGATIVE); UGLUCOSE NEGATIVE (NEGATIVE); UROBILINOGEN,URINE 0.2 EU/dL (0.2)
[2020-10-09 12:28] LABS: COLOR,URINE STRAW (YELLOW)
[2020-10-09 12:40] VITALS: BP 127/84
[2020-10-09 13:14] LABS: BACTERIA,URINE Rare /HPF (None Seen); SQUAMOUS EPITHELIAL CELL,UR Rare /HPF (None Seen); WBC,URINE 0-2 /HPF (0-3)
== END 2020-10-09 12:41 | disposition home or self-care (01) ==
LOC: ER 10:20
DX: R10.84 Generalized abdominal pain (principal); I10 Essential (primary) hypertension; E11.9 Type 2 diabetes mellitus without complications; F17.200 Nicotine dependence, unspecified, uncomplicated; Z98.890 Other specified postprocedural states; Z88.5 Allergy status to narcotic agent; Z60.2 Problems related to living alone; Z79.899 Other long term (current) drug therapy
CPT/HCPCS: 36415; 74177; 80048; 80076; 81001; 83690; 84484; 85025; 96361; 96374; 96375; 99285; J1885; J2405; J7030; J7050; Q9967

== ENCOUNTER 2023-07-30 10:25 | Emergency (ER) | payer OTHER ==
[~2023-07-30] VITALS: Ht 175.3 cm; Wt 72.6 kg
[2023-07-30 10:57] LABS: BASOPHILS % (AUTO) 0.8 % (0.0-2.0); EOSINOPHILS # (AUTO) 0.1 K/uL (0.0-0.7); EOSINOPHILS % (AUTO) 1.3 % (0.0-6.0); HEMATOCRIT 43 % (33-45); HEMOGLOBIN 14.4 g/dL (11.5-14.8); LYMPHOCYTES # (AUTO) 1.8 K/uL (0.8-4.8); LYMPHOCYTES % (AUTO) 31.5 % (20.0-44.0); MEAN CORPUSCULAR HEMOGLOBIN 33 PG (26.0-33.0); MEAN CORPUSCULAR HGB CONC 34 g/dl (31.0-36.0); MEAN CORPUSCULAR VOLUME 96 fL (82-100); MONOCYTES # (AUTO) 0.4 K/uL (0.1-1.30); MONOCYTES % (AUTO) 7.6 % (2.0-12.0); NEUTROPHILS # (AUTO) 3.3 K/uL (1.8-8.9); NEUTROPHILS % (AUTO) 58.8 % (43.0-81.0); PLATELET COUNT (AUTO) 242 K/uL (150-450); RED BLOOD CELL COUNT(AUTO) 4.45 MIL/uL (4.0-5.2); RED CELL DISTRIBUTION WIDTH 14.4 % (11.5-15.0); WHITE BLOOD COUNT (AUTO) 5.6 K/uL (4.3-11.0)
[2023-07-30] MEDS: ONDANSETRON HCL/PF 4 MG/2 ML VIAL IVP ONE (11:00)
[2023-07-30] MEDS ORDERED: ONDANSETRON HCL/PF 4 MG/2 ML VIAL ONE (11:02)
[2023-07-30 11:05] LABS: CALCIUM, SERUM 9.4 mg/dL (8.5-10.1); POTASSIUM 4.4 mmol/L (3.5-5.1)
[2023-07-30 11:11] LABS: ALBUMIN 4.2 g/dL (3.4-5.0); BILIRUBIN,DIRECT 0.1 mg/dL (0.0-0.2); BILIRUBIN,TOTAL 0.7 mg/dL (0.2-1.0); TOTAL PROTEIN, SERUM 7.9 g/dL (6.4-8.2)
[2023-07-30 11:16] LABS: APPEARANCE,URINE Slightly Cloudy (CLEAR); BILIRUBIN,URINE Negative (NEGATIVE); BLOOD, URINE Negative Ery/uL (NEGATIVE); COLOR,URINE YELLOW (YELLOW); KETONES,URINE Trace mg/dL (NEGATIVE); LEUKOCYTE ESTERASE ,URINE Large (NEGATIVE); NITRITE, URINE Negative (NEGATIVE); PROTEIN,URINE Trace mg/dl (NEGATIVE); UGLUCOSE Negative (NEGATIVE); UROBILINOGEN,URINE 0.2 EU/dL (0.2)
[2023-07-30 11:22] LABS: ALCOHOL, BLOOD < 3 mg/dL (0-10)
[2023-07-30 11:23] LABS: ACETAMINOPHEN <10 ug/ml (10-30); SALICYLATE 1.6 mg/dL (2.8-20.0)
[2023-07-30 11:26] LABS: AMPHETAMINE, URINE NEGATIVE (NEGATIVE); BARBITURATE, URINE NEGATIVE (NEGATIVE); BENZODIAZEPINE, URINE NEGATIVE (NEGATIVE); CANNABINOID, URINE NEGATIVE (NEGATIVE); COCCAINE, URINE NEGATIVE (NEGATIVE); OPIATE, URINE NEGATIVE (NEGATIVE); PHENCYCLIDINE SCREEN,URINE NEGATIVE (NEGATIVE)
[2023-07-30 11:33] LABS: ADD URINE CULTURE YES; BACTERIA,URINE Few /HPF (None Seen); RBC,URINE 0-2 /HPF (0-2); SQUAMOUS EPITHELIAL CELL,UR Few /HPF (None Seen)
[2023-07-30] MEDS ORDERED: CEPHALEXIN MONOHYDRATE 500 MG CAPSULE PO ONE (11:54)
[2023-07-30] MEDS: CEPHALEXIN MONOHYDRATE 500 MG CAPSULE PO ONE (11:57)
[2023-07-30 13:30] VITALS: BP 120/78; TEMP 98.2; O2SAT 99
== END 2023-07-30 15:40 ==
LOC: ER 10:30
DX: F29 Unspecified psychosis not due to a substance or known physiological condition (principal); R14.0 Abdominal distension (gaseous); I10 Essential (primary) hypertension; E11.9 Type 2 diabetes mellitus without complications; F19.10 Other psychoactive substance abuse, uncomplicated; F17.200 Nicotine dependence, unspecified, uncomplicated; Z20.822 Contact with and (suspected) exposure to COVID-19; Z88.8 Allergy status to other drugs, medicaments and biological substances; Z98.51 Tubal ligation status; Z90.710 Acquired absence of both cervix and uterus; Z60.2 Problems related to living alone
CPT/HCPCS: 99285; 96374; 85025; 80048; 87086; 83690; 80076; 81001; 36415; 87426; 80143; 80320; 80307; J2405; G0480

== ENCOUNTER 2023-08-08 02:24 | Emergency (ER) | payer OTHER ==
[~2023-08-08] VITALS: Ht 162.6 cm; Wt 59.0 kg
[2023-08-08] MEDS ORDERED: IBUPROFEN 400 MG TABLET ONE (02:50)
[2023-08-08] MEDS ORDERED: ONDANSETRON 4 MG TAB.RAPDIS ONE (02:51)
[2023-08-08] MEDS: IBUPROFEN 400 MG TABLET PO ONE (02:55)
[2023-08-08] MEDS: ONDANSETRON 4 MG TAB.RAPDIS PO ONE (02:56)
[2023-08-08 04:00] LABS: APPEARANCE,URINE CLEAR (CLEAR); BILIRUBIN,URINE NEGATIVE (NEGATIVE); BLOOD, URINE TRACE-INTA Ery/uL (NEGATIVE); COLOR,URINE YELLOW (YELLOW); KETONES,URINE NEGATIVE (NEGATIVE); LEUKOCYTE ESTERASE ,URINE NEGATIVE (NEGATIVE); NITRITE, URINE NEGATIVE (NEGATIVE); PROTEIN,URINE NEGATIVE (NEGATIVE); UGLUCOSE NEGATIVE (NEGATIVE); UROBILINOGEN,URINE 0.2 EU/dL (0.2)
[2023-08-08 04:17] LABS: ADD URINE CULTURE NO; BACTERIA,URINE None seen /HPF (None Seen); RBC,URINE 0-2 /HPF (0-2); SQUAMOUS EPITHELIAL CELL,UR Rare /HPF (None Seen); WBC,URINE 0-2 /HPF (0-3)
[2023-08-08 04:24] VITALS: BP 132/78; TEMP 98.5; O2SAT 98
== END 2023-08-08 04:24 | disposition home or self-care (01) ==
LOC: ER 02:30
DX: R30.0 Dysuria (principal); R51.9 Headache, unspecified; R11.0 Nausea; I10 Essential (primary) hypertension; E11.9 Type 2 diabetes mellitus without complications; N18.9 Chronic kidney disease, unspecified; F17.200 Nicotine dependence, unspecified, uncomplicated; Z79.899 Other long term (current) drug therapy; Z79.82 Long term (current) use of aspirin; Z98.890 Other specified postprocedural states; Z60.2 Problems related to living alone; Z88.5 Allergy status to narcotic agent
CPT/HCPCS: 99283; 81001; Q0162

== ENCOUNTER 2023-08-26 13:31 | Emergency (ER) | payer OTHER ==
[~2023-08-26] VITALS: Ht 167.6 cm; Wt 51.7 kg
[2023-08-26 14:14] LABS: BASOPHILS # (AUTO) 0.1 K/uL (0.0-0.2); BASOPHILS % (AUTO) 0.9 % (0.0-2.0); EOSINOPHILS # (AUTO) 0.1 K/uL (0.0-0.7); EOSINOPHILS % (AUTO) 1.9 % (0.0-6.0); HEMATOCRIT 40 % (33-45); HEMOGLOBIN 13.2 g/dL (11.5-14.8); LYMPHOCYTES # (AUTO) 1.6 K/uL (0.8-4.8); LYMPHOCYTES % (AUTO) 27.1 % (20.0-44.0); MEAN CORPUSCULAR HEMOGLOBIN 32 PG (26.0-33.0); MEAN CORPUSCULAR HGB CONC 33 g/dl (31.0-36.0); MEAN CORPUSCULAR VOLUME 96 fL (82-100); MONOCYTES # (AUTO) 0.4 K/uL (0.1-1.30); MONOCYTES % (AUTO) 7.1 % (2.0-12.0); NEUTROPHILS # (AUTO) 3.8 K/uL (1.8-8.9); PLATELET COUNT (AUTO) 218 K/uL (150-450); RED BLOOD CELL COUNT(AUTO) 4.17 MIL/uL (4.0-5.2); RED CELL DISTRIBUTION WIDTH 14.4 % (11.5-15.0)
[2023-08-26 14:28] LABS: APPEARANCE,URINE Clear (CLEAR); BILIRUBIN,URINE Negative (NEGATIVE); BLOOD, URINE Negative Ery/uL (NEGATIVE); COLOR,URINE YELLOW (YELLOW); KETONES,URINE Negative (NEGATIVE); LEUKOCYTE ESTERASE ,URINE Trace (NEGATIVE); NITRITE, URINE Negative (NEGATIVE); PROTEIN,URINE Negative (NEGATIVE); UGLUCOSE Negative (NEGATIVE); UROBILINOGEN,URINE 0.2 EU/dL (0.2)
[2023-08-26 14:31] LABS: ALANINE AMINOTRANSFERASE < 6 U/L (12-78); ALKALINE PHOSPHATASE 69 U/L (46-116); ASPARTATE AMINOTRANSFERASE 22 U/L (15-37); BILIRUBIN,TOTAL 0.3 mg/dL (0.2-1.0); CALCIUM, SERUM 9.6 mg/dL (8.5-10.1); CARBON DIOXIDE 29 mmol/L (21-32); CHLORIDE 103 mmol/L (98-107); CREATININE 1.2 mg/dL (0.6-1.3); GLUCOSE 144 mg/dL (74-106); POTASSIUM 3.7 mmol/L (3.5-5.1); SODIUM SERUM 136 mmol/L (136-145); TOTAL PROTEIN, SERUM 7.5 g/dL (6.4-8.2); UREA NITROGEN, BLOOD 14 mg/dL (7-18)
[2023-08-26 14:34] LABS: ALBUMIN 0.1 g/dL (3.4-5.0)
[2023-08-26 14:35] LABS: ACETAMINOPHEN <10 ug/ml (10-30); SALICYLATE < 2.3 mg/dL (2.8-20.0)
[2023-08-26 14:36] LABS: ALCOHOL, BLOOD < 3 mg/dL (0-10)
[2023-08-26 15:04] LABS: RBC,URINE 0-2 /HPF (0-2)
[2023-08-26 15:05] LABS: ADD URINE CULTURE NO; BACTERIA,URINE Few /HPF (None Seen); SQUAMOUS EPITHELIAL CELL,UR Few /HPF (None Seen); URINE AMORPHOUS PHOSPHATES Few /HPF (None Seen); WBC,URINE 0-2 /HPF (0-3)
[2023-08-26 16:07] LABS: AMPHETAMINE, URINE NEGATIVE (NEGATIVE); BARBITURATE, URINE NEGATIVE (NEGATIVE); BENZODIAZEPINE, URINE NEGATIVE (NEGATIVE); CANNABINOID, URINE NEGATIVE (NEGATIVE); COCCAINE, URINE NEGATIVE (NEGATIVE); OPIATE, URINE NEGATIVE (NEGATIVE); PHENCYCLIDINE SCREEN,URINE NEGATIVE (NEGATIVE)
[2023-08-26 17:35] VITALS: BP 101/72; TEMP 97.9; O2SAT 96
== END 2023-08-26 18:44 ==
LOC: ER 13:43
DX: F20.9 Schizophrenia, unspecified (principal); F29 Unspecified psychosis not due to a substance or known physiological condition; I10 Essential (primary) hypertension; E11.9 Type 2 diabetes mellitus without complications; F19.10 Other psychoactive substance abuse, uncomplicated; F17.200 Nicotine dependence, unspecified, uncomplicated; Z86.79 Personal history of other diseases of the circulatory system; Z87.19 Personal history of other diseases of the digestive system; Z87.448 Personal history of other diseases of urinary system; Z90.710 Acquired absence of both cervix and uterus; Z88.8 Allergy status to other drugs, medicaments and biological substances; Z60.2 Problems related to living alone; Z20.822 Contact with and (suspected) exposure to COVID-19
CPT/HCPCS: 36415; 80048-TC; 80076-TC; 81001; 85025-TC; G0480

== ENCOUNTER 2023-10-13 12:35 | Emergency (ER) | payer MEDICARE, OTHER ==
[~2023-10-13] VITALS: Ht 162.6 cm; Wt 59.0 kg
--- NOTE | 2023-10-13 12:40 | NUR ---
MEL FROM HOME FOR SHARP ABD PAIN FOR 3 DAYS
--- NOTE | 2023-10-13 12:50 | NUR ---
18g Established in the RAC. Blood drawn labeled at bedside and sent to lab for processing
[2023-10-13] MEDS ORDERED: ACETAMINOPHEN ES 500 MG TABLET ONE (12:55)
[2023-10-13] MEDS: ACETAMINOPHEN ES 500 MG TABLET PO ONE (12:58)
[2023-10-13] MEDS: IV NS 0.9% 500 ML BAG IV ONE (12:58)
[2023-10-13 13:00] LABS: BASOPHILS % (AUTO) 0.5 % (0.0-2.0); EOSINOPHILS % (AUTO) 0.8 % (0.0-6.0); HEMATOCRIT 44 % (33-45); HEMOGLOBIN 14.5 g/dL (11.5-14.8); LYMPHOCYTES # (AUTO) 1.5 K/uL (0.8-4.8); LYMPHOCYTES % (AUTO) 26.7 % (20.0-44.0); MEAN CORPUSCULAR HEMOGLOBIN 32 PG (26.0-33.0); MEAN CORPUSCULAR HGB CONC 33 g/dl (31.0-36.0); MEAN CORPUSCULAR VOLUME 96 fL (82-100); MONOCYTES # (AUTO) 0.5 K/uL (0.1-1.30); MONOCYTES % (AUTO) 9.2 % (2.0-12.0); NEUTROPHILS # (AUTO) 3.5 K/uL (1.8-8.9); NEUTROPHILS % (AUTO) 62.8 % (43.0-81.0); PLATELET COUNT (AUTO) 227 K/uL (150-450); RED BLOOD CELL COUNT(AUTO) 4.53 MIL/uL (4.0-5.2); RED CELL DISTRIBUTION WIDTH 14.4 % (11.5-15.0); WHITE BLOOD COUNT (AUTO) 5.5 K/uL (4.3-11.0)
[2023-10-13 13:39] VITALS: BP 108/68; TEMP 98.6; O2SAT 98
[2023-10-13 13:46] LABS: CALCIUM, SERUM 9.8 mg/dL (8.5-10.1); CREATININE 0.9 mg/dL (0.6-1.3); POTASSIUM 3.9 mmol/L (3.5-5.1)
--- NOTE | 2023-10-13 13:46 | NUR ---
Patient to CT via [facility]
[2023-10-13 13:52] LABS: ALBUMIN 4.1 g/dL (3.4-5.0); BILIRUBIN,DIRECT 0.1 mg/dL (0.0-0.2); BILIRUBIN,TOTAL 0.4 mg/dL (0.2-1.0)
--- NOTE | 2023-10-13 14:58 | NUR ---
Patient discharged to home in stable condition. Written and verbal after care instructions given. Patient verbalizes understanding of instruction.
--- NOTE | 2023-10-13 14:58 | NUR ---
IV removed. Catheter intact and site benign. Pressure and 4x4 applied to site. No bleeding noted.
== END 2023-10-13 15:00 | disposition home or self-care (01) ==
LOC: ER 12:37
DX: G89.29 Other chronic pain (principal); R10.33 Periumbilical pain; I10 Essential (primary) hypertension; E11.9 Type 2 diabetes mellitus without complications; F19.10 Other psychoactive substance abuse, uncomplicated; F17.200 Nicotine dependence, unspecified, uncomplicated; Z86.79 Personal history of other diseases of the circulatory system; Z87.19 Personal history of other diseases of the digestive system; Z87.448 Personal history of other diseases of urinary system; Z87.39 Personal history of other diseases of the musculoskeletal system and connective tissue; Z86.59 Personal history of other mental and behavioral disorders; Z90.710 Acquired absence of both cervix and uterus; Z88.8 Allergy status to other drugs, medicaments and biological substances; Z60.2 Problems related to living alone
CPT/HCPCS: 36415; 80048-TC; 80076-TC; 83690-TC; 85025-TC

== ENCOUNTER 2024-04-09 02:36 | Emergency (ER) | payer BC, OTHER ==
[~2024-04-09] VITALS: Ht 162.6 cm; Wt 59.0 kg
[2024-04-09] MEDS ORDERED: IBUPROFEN 400 MG TABLET ONE (02:57)
[2024-04-09] MEDS: IBUPROFEN 400 MG TABLET PO ONE (03:00)
[2024-04-09 08:34] VITALS: BP 109/80; TEMP 98.8; O2SAT 98
== END 2024-04-09 08:35 | disposition home or self-care (01) ==
LOC: ER 02:40
DX: R51.9 Headache, unspecified (principal); E11.9 Type 2 diabetes mellitus without complications; F17.200 Nicotine dependence, unspecified, uncomplicated; I10 Essential (primary) hypertension; Z79.1 Long term (current) use of non-steroidal anti-inflammatories (NSAID); Z79.82 Long term (current) use of aspirin; Z79.899 Other long term (current) drug therapy; Z88.5 Allergy status to narcotic agent; Z90.710 Acquired absence of both cervix and uterus; Z60.2 Problems related to living alone
CPT/HCPCS: 70450-TC

== ENCOUNTER 2024-10-04 08:53 | Emergency (ER) | payer OTHER ==
[~2024-10-04] VITALS: Ht 152.4 cm; Wt 51.7 kg
[2024-10-04] MEDS ORDERED: IBUPROFEN 600 MG TABLET ONE (09:03)
[2024-10-04] MEDS: IBUPROFEN 600 MG TABLET PO ONE (09:12)
[2024-10-04 09:17] LABS: PLATELET COUNT (AUTO) 255 K/uL (150-450); RED BLOOD CELL COUNT(AUTO) 4.31 MIL/uL (4.0-5.2); RED CELL DISTRIBUTION WIDTH 15.1 % (11.5-15.0); WHITE BLOOD COUNT (AUTO) 5.9 K/uL (4.3-11.0)
[2024-10-04 09:27] LABS: CALCIUM, SERUM 9.9 mg/dL (8.5-10.1); CREATININE 1.2 mg/dL (0.6-1.3); SODIUM SERUM 145 mmol/L (136-145); UREA NITROGEN, BLOOD 15 mg/dL (7-18)
[2024-10-04 11:51] VITALS: BP 129/79; TEMP 98.3; O2SAT 96
== END 2024-10-04 12:15 | disposition home or self-care (01) ==
LOC: ER 08:59
DX: R07.89 Other chest pain (principal); I10 Essential (primary) hypertension; E11.9 Type 2 diabetes mellitus without complications; F17.200 Nicotine dependence, unspecified, uncomplicated; F20.9 Schizophrenia, unspecified; Z79.1 Long term (current) use of non-steroidal anti-inflammatories (NSAID); Z79.82 Long term (current) use of aspirin; Z79.899 Other long term (current) drug therapy; Z88.5 Allergy status to narcotic agent; Z90.710 Acquired absence of both cervix and uterus; Z60.2 Problems related to living alone
CPT/HCPCS: 36415; 71045-TC; 80048-TC; 84484-TC; 85025-TC

== ENCOUNTER 2024-10-24 15:59 | Emergency (ER) | payer OTHER ==
[~2024-10-24] VITALS: Ht 167.6 cm; Wt 51.7 kg
[2024-10-24 16:21] VITALS: TEMP 98.3
[2024-10-24 16:29] LABS: PLATELET COUNT (AUTO) 272 K/uL (150-450); RED BLOOD CELL COUNT(AUTO) 4.07 MIL/uL (4.0-5.2); RED CELL DISTRIBUTION WIDTH 14.6 % (11.5-15.0); WHITE BLOOD COUNT (AUTO) 5.0 K/uL (4.3-11.0)
[2024-10-24 16:37] LABS: CALCIUM, SERUM 9.6 mg/dL (8.5-10.1); CREATININE 1.1 mg/dL (0.6-1.3); SODIUM SERUM 144 mmol/L (136-145); UREA NITROGEN, BLOOD 11 mg/dL (7-18)
[2024-10-24 17:07] LABS: NT-PRO BNP 119 pg/mL (0-125)
[2024-10-24 21:32] VITALS: BP 102/53; O2SAT 98
== END 2024-10-24 21:32 | disposition home or self-care (01) ==
LOC: ER 16:02
DX: R00.2 Palpitations (principal); R00.0 Tachycardia, unspecified; R07.9 Chest pain, unspecified; I10 Essential (primary) hypertension; E11.9 Type 2 diabetes mellitus without complications; F17.200 Nicotine dependence, unspecified, uncomplicated; Z79.1 Long term (current) use of non-steroidal anti-inflammatories (NSAID); Z79.82 Long term (current) use of aspirin; Z79.899 Other long term (current) drug therapy; Z88.5 Allergy status to narcotic agent; Z90.710 Acquired absence of both cervix and uterus; Z86.79 Personal history of other diseases of the circulatory system; Z87.19 Personal history of other diseases of the digestive system; Z87.448 Personal history of other diseases of urinary system; Z87.42 Personal history of other diseases of the female genital tract; Z86.59 Personal history of other mental and behavioral disorders; Z60.2 Problems related to living alone
CPT/HCPCS: 36415; 71045-TC; 80048-TC; 83735-TC; 83880; 84439-TC; 84443-TC; 84484-TC; 85025-TC

== ENCOUNTER 2025-01-17 06:25 | Emergency (ER) | payer OTHER ==
[~2025-01-17] VITALS: Ht 167.6 cm; Wt 51.7 kg
[2025-01-17] MEDS ORDERED: MORPHINE SULFATE INJ 4 MG/ML DISP.SYRIN ONE (06:37)
[2025-01-17] MEDS ORDERED: FAMOTIDINE/PF INJ 20 MG/2 ML VIAL IV ONE (06:37)
[2025-01-17] MEDS ORDERED: ONDANSETRON HCL/PF 4 MG/2 ML VIAL ONE (06:37)
[2025-01-17] MEDS: MORPHINE SULFATE INJ 2 MG/ML DISP.SYRIN IV ONE (06:48)
[2025-01-17] MEDS: ONDANSETRON HCL/PF 4 MG/2 ML VIAL IVP ONE (06:48)
[2025-01-17] MEDS: FAMOTIDINE/PF INJ 20 MG/2 ML VIAL IV ONE (06:48)
[2025-01-17] MEDS: IV NS 0.9% 1,000 ML BAG IV ONE (06:48)
[2025-01-17 07:11] LABS: PLATELET COUNT (AUTO) 221 K/uL (150-450); RED BLOOD CELL COUNT(AUTO) 4.05 MIL/uL (4.0-5.2); RED CELL DISTRIBUTION WIDTH 14.6 % (11.5-15.0); WHITE BLOOD COUNT (AUTO) 5.5 K/uL (4.3-11.0)
[2025-01-17 07:17] LABS: CALCIUM, SERUM 8.6 mg/dL (8.5-10.1); CREATININE 1.0 mg/dL (0.6-1.3); SODIUM SERUM 143.0 mmol/L (136-145); UREA NITROGEN, BLOOD 18.0 mg/dL (7-18)
[2025-01-17 07:22] LABS: ASPARTATE AMINOTRANSFERASE 28.0 U/L (15-37); TOTAL PROTEIN, SERUM 7.2 g/dL (6.4-8.2)
[2025-01-17] MEDS ORDERED: DOCU-141 PO (08:39)
[2025-01-17 09:20] LABS: APPEARANCE,URINE CLEAR (CLEAR); BLOOD, URINE TRACE-INTA Ery/uL (NEGATIVE); LEUKOCYTE ESTERASE ,URINE NEGATIVE (NEGATIVE); NITRITE, URINE NEGATIVE (NEGATIVE); UGLUCOSE NEGATIVE (NEGATIVE)
[2025-01-17 09:33] LABS: ADD URINE CULTURE NO; SQUAMOUS EPITHELIAL CELL,UR 0-2 /HPF (None Seen)
[2025-01-17 10:41] VITALS: BP 109/67; TEMP 98.5; O2SAT 99
== END 2025-01-17 10:42 | disposition home or self-care (01) ==
LOC: ER 06:27
DX: K59.00 Constipation, unspecified (principal); I11.9 Hypertensive heart disease without heart failure; F17.200 Nicotine dependence, unspecified, uncomplicated; E11.9 Type 2 diabetes mellitus without complications; Z79.1 Long term (current) use of non-steroidal anti-inflammatories (NSAID); Z79.82 Long term (current) use of aspirin; Z79.899 Other long term (current) drug therapy; Z88.5 Allergy status to narcotic agent; Z90.710 Acquired absence of both cervix and uterus; Z60.2 Problems related to living alone
CPT/HCPCS: 99285; 74176; 96374; 96375; 96361; 85025; 80048; 87086; 83690; 80076; 81001; 36415; J2270; J1308; J2405; J7030